=== PATIENT | female | born 1985 | race Caucasian/White ===

== ENCOUNTER 2016-05-09 19:32 | Emergency (ER) | payer OTHER ==
[~2016-05-09] VITALS: Ht 167.6 cm; Wt 106.8 kg
[2016-05-09 19:46] VITALS: BP 154/91; PULSE 70; RESP 16; O2SAT 99
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
[2016-05-09 20:13] LABS: BASOPHILS % (AUTO) 0.2 % (0-3); EOSINOPHILS % (AUTO) 1.1 % (0-5); Mean Corpuscular Hemoglobin 27.4 pg (27.0-35.0); Mean Corpuscular Volume 83.1 fL (81-100); NEUTROPHILS % (AUTO) 78.1 % (40-74); Platelet Count 403 bil/L (150-400)
[2016-05-09] MEDS ORDERED: QUET200T58 PO (20:41)
[2016-05-09] MEDS ORDERED: PREG225C PO (20:41)
[2016-05-09] MEDS ORDERED: ETOD400T PO (20:41)
[2016-05-09] MEDS ORDERED: KLO1T PO (20:41)
[2016-05-09] MEDS ORDERED: PRAM0.252 PO (20:41)
[2016-05-09] MEDS ORDERED: ESCI20TA38 PO (20:41)
[2016-05-09] MEDS ORDERED: GABA-502 PO (20:41)
--- NOTE | 2016-05-09 20:50 | DRSVH ---
PROCEDURE: X-RAY RIGHT KNEE, THREE VIEWS ([id number]) INDICATIONS: 30 year-old female with right knee pain, with stated recent lateral patellar dislocation . TECHNIQUE: 3 views of the knee were acquired. COMPARISON: [facility], CR, XR KNEE RIGHT 3V, 10/28/2015, 10:21 PM. [facility], CR, KNEE 3VW (RT), 03/19/2009, 15:01. [facility], CR, KNEE 3VW (RT), 12/05/2008, 1 4:40. FINDINGS: Bones: No fractures or dislocations. Patient is status post remote surgical repositioning of the ti bial tubercle. There is asymmetric narrowing of the medial femorotibial compartment. No suspicious chrissy ny lesions. Soft tissues: No joint effusion. No suspicious soft tissue calcifications. IMPRESSION: 1. No acute bony injury to the right knee. If there is suspected recent lateral patellar dislocation, consider further evaluation with nonemergent noncontrast right knee MRI. 2. Early medial right knee joint degenerative cartilage loss. Dictated by: Olivier Sanchez M.D. on 05/09/2016 at 20:42 Approved by: Olivier Sanchez M.D. on 05/09/2016 at 20:44
[2016-05-09 21:11] LABS: APPEARANCE,URINE CLEAR (CLEAR,HAZY); COLOR,URINE YELLOW (YELLOW); OCCULT BLOOD,URINE NEGATIVE (NEGATIVE); UROBILINOGEN,URINE NORMAL (NORMAL)
[2016-05-09 21:12] LABS: ICTOTEST,URINE POSITIVE (Negative)
[2016-05-10 01:16] VITALS: BP 108/65; PULSE 112; RESP 18; O2SAT 94
[2016-05-10 06:09] VITALS: BP 111/72; PULSE 100; RESP 18; O2SAT 96
[2016-05-10 06:28] LABS: BASOPHILS % (AUTO) 0.3 % (0-3); EOSINOPHILS % (AUTO) 2.4 % (0-5); MONOCYTES % (AUTO) 11.7 % (4-12); Mean Corpuscular Hemoglobin 26.8 pg (27.0-35.0); Mean Corpuscular Volume 84.5 fL (81-100); NEUTROPHILS % (AUTO) 72.4 % (40-74); Platelet Count 379 bil/L (150-400)
[2016-05-10] MEDS ORDERED: Ketorolac 30 mg/mL 2 mL Inj IM ONE (09:15)
--- NOTE | 2016-05-10 09:20 | DRSVH ---
PROCEDURE: X-RAY CHEST ONE VIEW, PORTABLE ([id number]) INDICATIONS: leukocytosis TECHNIQUE: One view of the chest was acquired. COMPARISON: None. FINDINGS: Surgical changes and devices: None. Lungs and pleura: No pleural effusions or pneumothorax. Lungs are clear. Mediastinum: Mediastinal contours appear normal. Heart size is normal. Bones and chest wall: No suspicious bony lesions. Overlying soft tissues appear unremarkable. IMPRESSION: No acute cardiopulmonary disease. Dictated by: Aldo Montesinos [facility] Interpreted: Hilario Sommer MD on 05/10/2016 at 9:19 Transcribed by: SKIP on 05/10/2016 at 9:19 Approved by: Hilario Sommer M.D. on 05/10/2016 at 13:28
[2016-05-10 10:36] VITALS: BP 147/101; PULSE 106; RESP 12; O2SAT 97
[2016-05-10 16:09] VITALS: BP 112/53; PULSE 109; RESP 12; O2SAT 99
[2016-05-10 21:26] VITALS: BP 113/71; PULSE 112; RESP 16; O2SAT 97
[2016-05-10 21:46] VITALS: BP 113/71; PULSE 112; RESP 16; O2SAT 97
== END 2016-05-10 21:48 | disposition other institution (70) ==
LOC: SED 19:32
DX: R45.851 Suicidal ideations (principal); Z88.5 Allergy status to narcotic agent; Z88.6 Allergy status to analgesic agent; Q79.6 Ehlers-Danlos syndromes
CPT/HCPCS: 36415; 71010; 73562; 80053; 81000; 81025; 82075; 84443; 85025; 96372; 96374; 99285; J1885

== ENCOUNTER 2016-05-19 15:41 | Inpatient (IN) | payer OTHER ==
[~2016-05-19] VITALS: Ht 167.6 cm; Wt 102.6 kg
[~2016-05-19 15:41] MED LIST: ESCI20TA38 PO; ETOD400T PO; GABA-502 PO; KLO1T PO; PRAM0.252 PO; PREG225C PO; QUET200T58 PO
[2016-05-19 15:48] VITALS: BP 129/83; PULSE 137; RESP 20; O2SAT 90
[2016-05-19] MEDS ORDERED: Ondansetron 2 mg/mL 2 mL Inj IV PRN (16:25)
[2016-05-19] MEDS ORDERED: 0.9% Sodium Chloride 1,000 ML IV ONE ×2 (16:25→17:50)
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
[2016-05-19 17:10] LABS: Platelet Count 332 bil/L (150-400)
[2016-05-19 17:26] LABS: BASOPHILS % (AUTO) 0 % (0-3); EOSINOPHILS % (AUTO) 1 % (0-5); MONOCYTES % (AUTO) 1 % (4-12); NEUTROPHILS % (AUTO) 85 % (40-74)
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
[2016-05-19 18:05] VITALS: BP 113/66; PULSE 120; RESP 20; O2SAT 88
[2016-05-19] MEDS ORDERED: HYDROmorphone 0.5 mg/0.5 mL iSecure Syringe IVPUSH PRN (18:15)
[2016-05-19 18:18] LABS: APPEARANCE,URINE HAZY (CLEAR,HAZY); COLOR,URINE YELLOW (YELLOW); OCCULT BLOOD,URINE NEGATIVE (NEGATIVE); PH,URINE 5.5 (5.0-8.0)
[2016-05-19 18:19] LABS: ICTOTEST,URINE POSITIVE (Negative); UROBILINOGEN,URINE NORMAL (NORMAL)
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
[2016-05-19] MEDS ORDERED: levoFLOXacin Inj 750 MG in IV Premix 1 EACH IV ONE (19:35)
[2016-05-19] MEDS ORDERED: Piperacillin-Tazo 3.375 Gm Inj 3.375 GM in Dextrose 5% Minibag Plus 50 ML IV ONE (19:35)
[2016-05-19 19:43] VITALS: BP 133/72; PULSE 119; RESP 15; O2SAT 97
[2016-05-19] MEDS ORDERED: TRAM50TA2 PO (20:17)
[2016-05-19] MEDS ORDERED: OXYC-466 PO (20:17)
[2016-05-19] MEDS ORDERED: CYCL10TA9 PO (20:17)
[2016-05-19] MEDS ORDERED: Alum-Mag Hydrox-Simeth 30 mL Suspension PO PRN (20:25)
[2016-05-19] MEDS ORDERED: Polyethylene Glycol (PEG) 17 Gm Powder PO PRN (20:25)
[2016-05-19 20:47] VITALS: BP 133/72; PULSE 119; RESP 15; O2SAT 97
[2016-05-19 21:15] VITALS: PULSE 120
[2016-05-19 21:23] VITALS: BP 126/80; PULSE 119; RESP 20; O2SAT 96
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
[2016-05-20] VITALS (11 sets, daily range): BP systolic 111–119; BP diastolic 66–76; PULSE 101–119; RESP 16–20; O2SAT 93–97
--- NOTE | 2016-05-20 00:03 | NUR ---
Admit: Pt arrived around 2114 to room 3015 from ED via stretcher, ambulated self to scale and BR with SBA; mother at bedside. Pt on 3L O2, tele, cont pulse ox. Pt AOx3, appears very sleepy, falls asleep during admit questions. Denies any suicidal ideation at this time. Left arm in a brace for recent sprain per pt. Nicotine patch placed on R shoulder. ED RN entered home medications, floor RN reviewed with patient.
[2016-05-20] MEDS: Piperacillin-Tazo 3.375 Gm Inj 3.375 GM in Dextrose 5% Minibag Plus 50 ML IV SCH ×3 (04:33→19:32)
--- NOTE | 2016-05-20 05:03 | NUR ---
Generalized pain and weakness A&Ox3. pt was afebrile throughout entire shift. Was extremely sleepy at times and difficult to keep engaged in conversation. Complained of generalized pain and weakness. pt has a recent history of suicide ideation, currently, no thoughts of suicide. Pleasant and compliant with care.
[2016-05-20 07:45] LABS: BASOPHILS % (AUTO) 0.1 % (0-3); EOSINOPHILS % (AUTO) 1.4 % (0-5); MONOCYTES % (AUTO) 3.8 % (4-12); Mean Corpuscular Hemoglobin 27.2 pg (27.0-35.0); Mean Corpuscular Volume 84.4 fL (81-100); NEUTROPHILS % (AUTO) 89.3 % (40-74); Platelet Count 290 bil/L (150-400)
[2016-05-20] MEDS: Ipratropium 0.02% 0.5 mg/2.5 mL Inhalation Solution NEB PRN ×2 (08:21→14:10)
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
[2016-05-20] MEDS: 0.9% Sodium Chloride 1,000 ML IV SCH ×2 (10:48→18:12)
--- NOTE | 2016-05-20 11:36 | NUR ---
Evaluation completed. Please go to "Notes" then click on "Assessments and Notes" (bottom left corner of screen). Then select appropriate discipline tab on top of screen.
[2016-05-20] MEDS: levoFLOXacin 750 mg Tablet PO SCH (11:57)
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
[2016-05-20] MEDS: Benzocaine-Menthol Lozenge 2/Pkg PO PRN ×3 (14:03→21:23)
--- NOTE | 2016-05-20 16:37 | NUR ---
Resp/Pain Pt c/o sore throat, persistent non-productive cough, and shortness of breath w/ ambulating to bathroom. Medicated w/ Tessalon yuki and Cepacol lozenge X1, which pt reports is too soon to know if it's helpful. Pt remains on room air w/ saturations 94%. Viral swab came back + for Coronavirus. Pt placed in droplet precautions. Pt c/o 10/07 generalized pain. Medicated w/ 10mg oxycodone X2 and 400mg Ibuprofen X1 w/ some relief. Pt has been sleeping intermittently throughout day. Up frequently to bathroom to void. Reports "not feeling well" overall.
[2016-05-20] MEDS: Ondansetron 2 mg/mL 2 mL Inj IVPUSH PRN (19:32)
[2016-05-21] VITALS (8 sets, daily range): BP systolic 112–133; BP diastolic 71–91; PULSE 86–108; RESP 16–20; O2SAT 90–95
[2016-05-21 01:07] LABS: Hepatitis A Antibody IgM Negative (Negative); Hepatitis B Core Antibody IgM Negative (Negative)
[2016-05-21] MEDS: 0.9% Sodium Chloride 1,000 ML IV SCH ×2 (02:27→10:33)
[2016-05-21] MEDS: Piperacillin-Tazo 3.375 Gm Inj 3.375 GM in Dextrose 5% Minibag Plus 50 ML IV SCH ×3 (03:59→20:34)
[2016-05-21] MEDS: Benzocaine-Menthol Lozenge 2/Pkg PO PRN ×3 (04:31→20:35)
[2016-05-21 06:48] LABS: BASOPHILS % (AUTO) 0.1 % (0-3); EOSINOPHILS % (AUTO) 2.1 % (0-5); MONOCYTES % (AUTO) 4.1 % (4-12); Mean Corpuscular Hemoglobin 26.6 pg (27.0-35.0); Mean Corpuscular Volume 83.6 fL (81-100); Platelet Count 312 bil/L (150-400)
[2016-05-21] MEDS ORDERED: levoFLOXacin Inj 750 MG in IV Premix 1 EACH IV SCH (08:30)
[2016-05-21] MEDS: levoFLOXacin 750 mg Tablet PO SCH (09:23)
--- NOTE | 2016-05-21 11:06 | DRSVH ---
PROCEDURE: X-RAY CHEST ONE VIEW, PORTABLE ([id number]) INDICATIONS: 30 year-old female with worsening cough. TECHNIQUE: One view of the chest was acquired. COMPARISON: [facility], CR, XR CHEST 1VW (PORTABLE), 05/10/2016, 6:40. FINDINGS: Surgical changes and devices: None. Lungs and pleura: No pleural effusions or pneumothorax. Right infrahilar airspace opacities are now present. Left lung remains clear. Mediastinum: Mediastinal contours appear normal. Heart size is normal. Bones and chest wall: No suspicious bony lesions. Overlying soft tissues appear unremarkable. IMPRESSION: Findings consistent with right infrahilar pneumonia or aspiration. Dictated by: Olivier Sanchez M.D. on 05/21/2016 at 11:03 Approved by: Olivier Sanchez M.D. on 05/21/2016 at 11:04
[2016-05-21] MEDS: LORazepam 0.5 mg Tablet PO PRN ×2 (12:16→20:34)
[2016-05-21] MEDS: Ondansetron 2 mg/mL 2 mL Inj IVPUSH PRN (15:59)
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
[2016-05-22] VITALS (8 sets, daily range): BP systolic 110–129; BP diastolic 65–92; PULSE 72–114; RESP 16–20; O2SAT 92–97
[2016-05-22] MEDS: Ondansetron 2 mg/mL 2 mL Inj IVPUSH PRN (01:22)
[2016-05-22] MEDS: 0.9% Sodium Chloride 1,000 ML IV SCH ×4 (01:22→21:15)
[2016-05-22] MEDS: Piperacillin-Tazo 3.375 Gm Inj 3.375 GM in Dextrose 5% Minibag Plus 50 ML IV SCH ×3 (04:41→20:16)
[2016-05-22] MEDS: LORazepam 0.5 mg Tablet PO PRN ×3 (05:07→21:48)
[2016-05-22] MEDS: Diphen-Lido-Mylanta 1:1:1 Susp 15 mL Syringe PO PRN ×3 (05:07→21:13)
--- NOTE | 2016-05-22 06:36 | NUR ---
Respiratory/Tongue Sores Pt began to desat during the night into the low 8os on RA so 2L NC was started so that pt SpO2 went up into the mid-90s. Pt is on continuous pulse ox. Pt c/o sores on her tongue and I looked at them and they looked like white plaques on the tongue. Pt said that she has had them since Friday but nobody has done anything about them. The MD was notified and came up to look at the pt's tongue. The MD did not think that the sores on the tongue were thrush but said that they will continue to monitor the pt. MD ordered magic mouth wash PRN for the pt to help with the pain.
[2016-05-22 07:17] LABS: BASOPHILS % (AUTO) 0.3 % (0-3); EOSINOPHILS % (AUTO) 4.5 % (0-5); MONOCYTES % (AUTO) 6.9 % (4-12); Mean Corpuscular Hemoglobin 26.8 pg (27.0-35.0); Mean Corpuscular Volume 82.8 fL (81-100); NEUTROPHILS % (AUTO) 71.5 % (40-74); Platelet Count 328 bil/L (150-400)
[2016-05-22] MEDS: levoFLOXacin 750 mg Tablet PO SCH (09:32)
[2016-05-22] MEDS ORDERED: MECL-114 PO (10:29)
[2016-05-22] MEDS ORDERED: PREG150C PO (10:29)
[2016-05-22] MEDS ORDERED: SUMA50TA31 PO (10:29)
[2016-05-22] MEDS ORDERED: GABA600T2 PO (10:29)
[2016-05-22] MEDS ORDERED: IPRA30SP8 NS (10:29)
[2016-05-22] MEDS ORDERED: ONDA4TAB12 PO (10:59)
[2016-05-22] MEDS ORDERED: PREG225C PO (10:59)
[2016-05-22] MEDS ORDERED: Nystatin 100,000 Unit/mL 5 mL Suspension PO ONE (11:10)
[2016-05-22] MEDS: Ipratropium 0.03% 30 mL Nasal Spray Bottle NASAL SCH ×2 (13:38→20:12)
--- NOTE | 2016-05-22 18:41 | NUR ---
pain pt is alert and oriented but has been sleepy though out PM shift. pt complains of chest and shoulder pain. pt is encouraged to do non opioid interventions such as deep breathing and drinking an adequate amount of water. bed is low and call light within reach.
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
[2016-05-22] MEDS: Nystatin 100,000 Unit/mL 5 mL Suspension PO SCH (20:11)
[2016-05-23] VITALS (7 sets, daily range): BP systolic 112–130; BP diastolic 72–84; PULSE 77–103; RESP 16–18; O2SAT 94–98
[2016-05-23] MEDS: Piperacillin-Tazo 3.375 Gm Inj 3.375 GM in Dextrose 5% Minibag Plus 50 ML IV SCH (05:33)
[2016-05-23 05:40] LABS: BASOPHILS % (AUTO) 0.5 % (0-3); EOSINOPHILS % (AUTO) 5.2 % (0-5); MONOCYTES % (AUTO) 8.5 % (4-12); Mean Corpuscular Hemoglobin 26.8 pg (27.0-35.0); Mean Corpuscular Volume 82.6 fL (81-100); NEUTROPHILS % (AUTO) 56.7 % (40-74); Platelet Count 379 bil/L (150-400)
[2016-05-23] MEDS: 0.9% Sodium Chloride 1,000 ML IV SCH (09:15)
[2016-05-23] MEDS: Ipratropium 0.03% 30 mL Nasal Spray Bottle NASAL SCH ×3 (09:16→23:07)
[2016-05-23] MEDS: LORazepam 0.5 mg Tablet PO PRN ×2 (09:18→20:00)
[2016-05-23] MEDS: levoFLOXacin 750 mg Tablet PO SCH (09:18)
[2016-05-23] MEDS: Nystatin 100,000 Unit/mL 5 mL Suspension PO SCH ×2 (09:19→20:00)
--- NOTE | 2016-05-23 12:22 | DRSVH ---
PROCEDURE: X-RAY CHEST ONE VIEW, PORTABLE ([id number]) INDICATIONS: 30 year-old female with pneumonia. TECHNIQUE: One view of the chest was acquired. COMPARISON: [facility], CR, XR CHEST 1VW (PORTABLE), 05/21/2016, 10:06. [facility], CR, XR CHEST 1VW (PORTABLE), 05/10/2016, 6:40. FINDINGS: Surgical changes and devices: None. Lungs and pleura: No pleural effusions or pneumothorax. Right infrahilar airspace opacity has decrea sed but not resolved. Left lung remains clear. Mediastinum: Mediastinal contours appear normal. Heart size is normal. Bones and chest wall: No suspicious bony lesions. Overlying soft tissues appear unremarkable. IMPRESSION: Decreasing right infrahilar pneumonia. Dictated by: Olivier Sanchez M.D. on 05/23/2016 at 12:15 Approved by: Olivier Sanchez M.D. on 05/23/2016 at 12:16
--- NOTE | 2016-05-23 13:13 | NUR ---
Respiratory Pt assessed, found sitting up in bed breathing RA. Sat 97%, HR 104, RR 18, BS clear bilaterally. Pt has dry, non-productive cough. Pt did not want a Tx at this time and is aware if she is short of breath or feels the need that a Tx is available.
[2016-05-23] MEDS: Diphen-Lido-Mylanta 1:1:1 Susp 15 mL Syringe PO PRN ×2 (13:50→23:07)
--- NOTE | 2016-05-23 13:59 | NUR ---
Social Work: Readiness for d/c Data: pt is on day 4 of hospitalization. EMR reviewed. Pt discussed in rounds. MD states pt likely ready for d/c in the next 1-2 days. No d/c planning needs anticipated at this time. [facility] will continue to follow if needs arise. Assessment: Pt who is independent at baseline. Plan: Pt will d/c home via POV when medically stable, likely in 1-2 days per MD. No d/c planning needs anticipated at this time. BURR PICKER will continue to follow if needs arise. INDU Gant
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
--- NOTE | 2016-05-23 15:51 | NUR ---
NUTRITION ASSESSMENT: ASSESS: 30 YO female admitted for pneumonia and sepsis. Pt with average po intake of only 25% x 3 days, but pt at 100% of breakfast today so po intake is improving. PMHx: Brian-Danlos syndrome, fibromyalgia, depression, anxiety, suicide ideation, PTSD, restless leg. LABS: Reviewed. Glu 121, ALT 37, alk phos 169, Alb 3.2. MEDS: Reviewed. GI: BM x 1 (05/20) CURRENT WT: 102.6 kg. IBW: 59.09 kg. DIET: General. PO variable with intake of refusal - 100% EST. NEEDS: 7781-6905 kcals (20-22 kcals/kg BW), 70-90 g protein (1.2-1.5 g/kg IBW) NUTRITION DIAGNOSIS: 1.) Inadequate oral intake related to acute illness as evidenced by po intake of 0-100% of meals x 4 days. NUTRITION INTERVENTION: 1.) As pt is eating 100% of meals today, will wait on ordering supplements at this time. MONITOR / EVAL: PO intake, labs, nutritional status. Follow per moderate nutritional risk guidelines.
[2016-05-24 05:33] VITALS: BP 112/69; PULSE 72; RESP 16; O2SAT 95
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
[2016-05-24 06:39] LABS: BASOPHILS % (AUTO) 0.5 % (0-3); MONOCYTES % (AUTO) 9.5 % (4-12); Mean Corpuscular Hemoglobin 26.3 pg (27.0-35.0); NEUTROPHILS % (AUTO) 61.1 % (40-74); Platelet Count 386 bil/L (150-400)
[2016-05-24] MEDS: levoFLOXacin 750 mg Tablet PO SCH (09:14)
[2016-05-24] MEDS: Nystatin 100,000 Unit/mL 5 mL Suspension PO SCH ×2 (09:14→21:00)
[2016-05-24] MEDS: Ipratropium 0.03% 30 mL Nasal Spray Bottle NASAL SCH ×3 (09:14→21:00)
[2016-05-24] MEDS: LORazepam 0.5 mg Tablet PO PRN (09:14)
[2016-05-24 13:45] VITALS: BP 125/76; PULSE 95; RESP 16; O2SAT 95
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
--- NOTE | 2016-05-24 17:55 | NUR ---
Activity: Encouraged patient to be OOB walking and to participate in personal hygiene care. Patient agreed. Ambulated two full lengths of hallway and showered this afternoon. Tolerated well.
[2016-05-24] MEDS: Diphen-Lido-Mylanta 1:1:1 Susp 15 mL Syringe PO PRN (18:14)
[2016-05-24 20:53] VITALS: BP 158/98; PULSE 109; RESP 16; O2SAT 98
[2016-05-24] MEDS ORDERED: LORazepam 0.5 mg Tablet PO PRN (21:00)
[2016-05-24] MEDS: Ipratropium 0.02% 0.5 mg/2.5 mL Inhalation Solution NEB PRN (21:04)
[2016-05-24 21:07] VITALS: PULSE 107; RESP 18; O2SAT 98
--- NOTE | 2016-05-25 04:34 | NUR ---
Anxiety/Pain Management Patient A&Ox3, mildly anxious at start of shift. Reports chest discomfort related to coughing. PRN oxycodone and ativan given per orders with good effect; patient sleeping through most of the shift. Continue to monitor.
[2016-05-25 04:40] VITALS: BP 101/68; PULSE 81; RESP 16; O2SAT 97
[2016-05-25 08:26] LABS: BASOPHILS % (AUTO) 0.4 % (0-3); EOSINOPHILS % (AUTO) 2.8 % (0-5); MONOCYTES % (AUTO) 9.3 % (4-12); Mean Corpuscular Hemoglobin 26.6 pg (27.0-35.0); Mean Corpuscular Volume 78.2 fL (81-100); NEUTROPHILS % (AUTO) 63.6 % (40-74); Platelet Count 454 bil/L (150-400)
[2016-05-25] MEDS: Ipratropium 0.03% 30 mL Nasal Spray Bottle NASAL SCH (08:30)
[2016-05-25] MEDS: levoFLOXacin 750 mg Tablet PO SCH (09:01)
[2016-05-25] MEDS: Nystatin 100,000 Unit/mL 5 mL Suspension PO SCH (09:03)
[2016-05-25] MEDS: Benzocaine-Menthol Lozenge 2/Pkg PO PRN (09:09)
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
[2016-05-25] MEDS ORDERED: BENZ-12 PO (12:01)
--- NOTE | 2016-05-25 13:06 | NUR ---
Social Work-discharge: Data:EMR Reviewed. Pt is on day 6 of hospitalization for pneumonia per h&P. Pt is medically stable to discharge today. PT has cleared pt for home no needs. Pt's mother to provide transport home. No discharge needs identified. All updated and agreeable to plan. Assessment:pt who is independent at baseline. Plan:Pt to discharge home today via POV. No discharge needs identified. All updated and agreeable to plan. INDU Montoya
--- NOTE | 2016-05-25 13:21 | NUR ---
Nursing Discharge Note: Patient was discharged to home at 1315. Her IV was discontinued intact. All of her discharge information was reviewed with her and her questions were answered to her satisfaction. Patient was escorted to the hospital lobby by nursing staff member and she was driven to home by her sister.
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
== END 2016-05-25 13:00 | disposition home or self-care (01) | DRG 871 ==
LOC: SED 15:41 → MPC 20:43
PROVIDERS: ADMIT Internal Medicine; ATTEND Internal Medicine
DX: A41.9 Sepsis, unspecified organism (principal); J18.9 Pneumonia, unspecified organism; B37.0 Candidal stomatitis; Q79.6 Ehlers-Danlos syndromes; R65.20 Severe sepsis without septic shock; F43.10 Post-traumatic stress disorder, unspecified; M79.7 Fibromyalgia; F17.200 Nicotine dependence, unspecified, uncomplicated; F41.8 Other specified anxiety disorders; G25.81 Restless legs syndrome; B97.29 Other coronavirus as the cause of diseases classified elsewhere; R74.0 Nonspecific elevation of levels of transaminase and lactic acid dehydrogenase [LDH]; A48.8 Other specified bacterial diseases; I10 Essential (primary) hypertension; J06.9 Acute upper respiratory infection, unspecified; A49.1 Streptococcal infection, unspecified site

== ENCOUNTER 2016-05-30 19:05 | Emergency (ER) | payer OTHER ==
[~2016-05-30] VITALS: Ht 167.6 cm; Wt 104.5 kg
[~2016-05-30 19:05] MED LIST changes: +BENZ-12 PO; +CYCL10TA9 PO; -ETOD400T PO; -GABA-502 PO; +GABA600T2 PO; +IPRA30SP8 NS; +MECL-114 PO; +ONDA4TAB12 PO; +OXYC-466 PO; +SUMA50TA31 PO; +TRAM50TA2 PO
[2016-05-30 19:13] VITALS: BP 124/83; PULSE 110; RESP 15; O2SAT 98
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
[2016-05-30] MEDS ORDERED: oxyCODONE-Acetamin 5-325 mg Tablet PO ONE (21:10)
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
[2016-05-30 22:30] LABS: BASOPHILS % (AUTO) 0.2 % (0-3); EOSINOPHILS % (AUTO) 0.7 % (0-5); MONOCYTES % (AUTO) 5.2 % (4-12); Mean Corpuscular Hemoglobin 26.4 pg (27.0-35.0); Mean Corpuscular Volume 80.4 fL (81-100); NEUTROPHILS % (AUTO) 69.2 % (40-74); Platelet Count 609 bil/L (150-400)
[2016-05-31] MEDS ORDERED: _oxyCODONE/APAP 5-325 mg Tablet PO PRN (00:15)
[2016-05-31 00:41] VITALS: BP 125/91; PULSE 81; RESP 16; O2SAT 97
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
== END 2016-05-31 00:41 | disposition home or self-care (01) ==
LOC: SED 19:05
DX: S20.219A Contusion of unspecified front wall of thorax, initial encounter (principal); S16.1XXA Strain of muscle, fascia and tendon at neck level, initial encounter; V43.52XA Car driver injured in collision with other type car in traffic accident, initial encounter; Y93.89 Activity, other specified; Y92.410 Unspecified street and highway as the place of occurrence of the external cause; Y99.8 Other external cause status; Q79.6 Ehlers-Danlos syndromes; F17.200 Nicotine dependence, unspecified, uncomplicated
CPT/HCPCS: 36415; 71020; 71260; 72125; 73030; 73080; 80053; 85025; 85379; 99284; Q9967